=== PATIENT | male | born 1975 | race Caucasian/White ===

== ENCOUNTER 2016-10-10 08:51 | Outpatient (CLI) ==
[2013-01-21 17:01] VITALS: BMI 24.1
[2016-10-10 09:07] LABS: BASOPHILS % (AUTO) 0.3 % (0.0-3.0); EOSINOPHILS % (AUTO) 0.4 % (0.0-7.0); HEMATOCRIT 41.6 % (42.0-52.0); HEMOGLOBIN 14.6 g/dl (14.0-18.0); IMMATURE GRANULOCYTE % (AUTO) 0.4 % (0.0-5.0); LYMPHOCYTES # (AUTO) 2.1 K/uL (0.60-3.4); LYMPHOCYTES % (AUTO) 27.8 (10.0-50.0); MEAN CORPUSCULAR HEMOGLOBIN 30.9 pg (27.0-31.0); MEAN CORPUSCULAR HGB CONC 35.1 (31.8-35.4); MEAN CORPUSCULAR VOLUME 88.1 fl (80.0-94.0); MONOCYTES # (AUTO) 0.5 K/uL (0.4-2.0); MONOCYTES % (AUTO) 6.2 (0-10); NEUTROPHILS % (AUTO) 64.9; PLATELET COUNT 205 10^3/uL (140-440); RED BLOOD COUNT 4.72 10^6/ul (4.70-6.10); WHITE BLOOD COUNT 7.63 K/ul (4.2-10.2)
[2016-10-10 09:41] LABS: ALBUMIN 4.1 g/dL (3.4-5.0); ALBUMIN/GLOBULIN RATIO 1.52; ANION GAP 14.5; BILIRUBIN,TOTAL 0.34 mg/dL (0.00-1.20); BUN/CREATININE RATIO 18.01; CALCIUM 9.3 mg/dL (8.2-10.2); CREATININE 1.11 mg/dL (0.60-1.10); POTASSIUM 5.5 mmol/L (3.5-5.1); TOTAL PROTEIN 6.8 g/dL (6.4-8.2)
== END 2016-10-10 08:52 | disposition home or self-care (01) ==
LOC: LAB 08:51
PROVIDERS: ATTEND Nurse Practitioner Family
DX: E11.9 Type 2 diabetes mellitus without complications (principal); E78.5 Hyperlipidemia, unspecified; I10 Essential (primary) hypertension
CPT/HCPCS: 36415; 80053; 80061; 83036; 84443; 85025

== ENCOUNTER 2018-03-08 05:00 | Outpatient (CLI) ==
[2013-01-21 17:01] VITALS: BMI 24.1
== END 2018-03-08 05:01 | disposition home or self-care (01) ==
LOC: AMBL 05:00
PROVIDERS: ATTEND Internal Medicine Geriatric Medicine
DX: R07.9 Chest pain, unspecified (principal); M79.602 Pain in left arm; M79.601 Pain in right arm; E11.9 Type 2 diabetes mellitus without complications

== ENCOUNTER 2018-11-11 19:23 | Emergency (ER) ==
[2018-11-11 19:29] VITALS: BP 117/110; TEMP 98; BMI 19.8
--- NOTE | 2018-11-11 20:02 | ED.PDOC ---
General ED Provider: Dr. SAM BOND-ER Chief Complaint: Psychiatric Complaint Stated Complaint: brought into the er by police for evaluation of depression Time Seen by Physician: 19:30 Mode of Arrival: Walk-In Information Source: Patient Exam Limitations: No limitations Primary Care Provider: ABHAY ROCK Nursing and Triage Documentation Reviewed and Agree: Yes Does patient meet sepsis criteria?: No System Inflammatory Response Syndrome: Not Applicable Sepsis Protocol: For patient's 13 years and over: Temp is 96.8 and below OR 101 and greater Pulse >90 BPM Resp >20/minute Acutely Altered Mental Status Are patient's symptoms suggestive of a new infection, such as: -Pneumonia -Skin, Soft Tissue -Endocarditis -UTI -Bone, Joint Infection -Implantable Device -Acute Abdominal Infection -Wound Infection -Meningitis -Blood Stream Catheter Infection -Unknown Miscellaneous Complaint Exam - Complex/Multi-System Complaint/Exam Onset/Duration: unknown Symptoms Are: Still present Initial Severity: Mild Current Severity: Mild Location of Pain: no pain Associated Signs and Symptoms: Denies: Decreased responsiveness, Confusion, Agitation, Dizziness, Weakness, Syncope, Headache, Short of air, Cough, Wheezing Recent Echo/LV Function: No JVD Present: No Tachypnea Present: No Stridor Present: No Abdominal Findings: Present: Normal findings Glascow Coma Scale (see protocol): 15 Meningeal Signs Positive: No Focal Weakness: Present: None Focal Sensory Loss: Present: None Gait: Normal Gag Reflex Present: Yes Babinski Sign: Negative Right, Negative Left Skin Findings: Present: Normal findings Joint Swelling Present: No In-Dwelling Device Present: No Quality Indicators For Pneumonia/CAP: Mental status assessed Review of Systems - Review Of Systems Constitutional: Reports: No symptoms Eyes: Reports: No symptoms Ears, Nose, Mouth, Throat: Reports: No symptoms Respiratory: Reports: No symptoms Cardiac: Reports: No symptoms GI: Reports: No symptoms : Reports: No symptoms Musculoskeletal: Reports: No symptoms Skin: Reports: No symptoms Neurological: Reports: No symptoms Endocrine: Reports: No symptoms Hematologic/Lymphatic: Reports: No symptoms All Other Systems: Reviewed and Negative Past Medical History - Past Medical History Previously Healthy: No Endocrine: Reports: DM 2 Cardiovascular: Reports: Unknown Respiratory: Reports: Unknown Hematological: Reports: Unknown Gastrointestinal: Reports: Unknown Genitourinary: Reports: Unknown Neuro/Psych: Reports: Unknown Musculoskeletal: Reports: Unknown Cancer: Reports: Unknown - Surgical History General Surgical History: Reports: Unknown - Family History Family History: Reports: Unknown - Social History Smoking Status: Current every day smoker, Heavy tobacco smoker Hx Substance Use: No Alcohol Screening: Heavy - Immunizations Tetanus Shot up to Date: No Physical Exam - Physical Exam Appearance: Well-appearing, No pain distress, Well-nourished Eyes: TASHIA, EOMI, Conjunctiva clear ENT: Ears normal, Nose normal, Oropharynx normal Neck: Supple Respiratory: Airway patent, Breath sounds clear, Breath sounds equal, Respirations nonlabored Cardiovascular: RRR, Pulses normal, No rub, No murmur GI/: Soft, Nontender, No masses, Bowel sounds normal, No Organomegaly Musculoskeletal: Normal strength, ROM intact, No edema, No calf tenderness Skin: Warm, Dry, Normal color Neurological: Sensation intact, Motor intact, Reflexes intact, Cranial nerves intact, Alert, Oriented Psychiatric: Affect appropriate, Mood appropriate Critical Care Note - Critical Care Note Total Time (mins): 0 Course - Course Hematology/Chemistry: 11/11/18 19:36 11/11/18 19:36 Orders, Labs, Meds: Lab Review 11/11/18 11/11/18 11/11/18 19:34 19:34 19:36 WBC 8.75 RBC 5.33 Hgb 16.7 Hct 47.5 MCV 89.1 MCH 31.3 H MCHC 35.2 RDW Coeff of Lopez 12.8 Plt Count 298 Immature Gran % (Auto) 0.5 Neut % (Auto) 54.4 Lymph % (Auto) 37.6 Lea % (Auto) 5.4 Eos % (Auto) 1.3 Baso % (Auto) 0.8 Immature Gran # (Auto) 0.0 Neut # (Auto) 4.8 Lymph # (Auto) 3.3 Lea # (Auto) 0.5 Eos # (Auto) 0.1 Baso # (Auto) 0.1 Sodium Potassium Chloride Carbon Dioxide Anion Gap BUN Creatinine Estimated GFR (MDRD) BUN/Creatinine Ratio Glucose Calcium Total Bilirubin AST ALT Alkaline Phosphatase Total Protein Albumin Globulin Albumin/Globulin Ratio Urine Color Yellow Urine Clarity Clear Urine pH 5.5 Ur Specific [place] <=1.005 Urine Protein Negative Urine Glucose (UA) 2+ Urine Ketones Negative Urine Blood Negative Urine Nitrite Negative Urine Bilirubin Negative Urine Urobilinogen 0.2 Ur Leukocyte Esterase Negative Salicylate Level mg/dL Urine Opiates Screen Negative Ur Oxycodone Screen Negative Urine Methadone Screen Negative Ur Propoxyphene Screen Negative Acetaminophen Ur Barbiturates Screen Negative U Tricyclic Antidepress Negative Ur Phencyclidine Scrn Negative Ur Amphetamine Screen Negative U Methamphetamines Scrn Negative U Benzodiazepines Scrn Positive Urine Cocaine Screen Negative U Cannabinoids Screen Negative Plasma/Serum Alcohol 11/11/18 19:36 WBC RBC Hgb Hct MCV MCH MCHC RDW Coeff of Lopez Plt Count Immature Gran % (Auto) Neut % (Auto) Lymph % (Auto) Lea % (Auto) Eos % (Auto) Baso % (Auto) Immature Gran # (Auto) Neut # (Auto) Lymph # (Auto) Lea # (Auto) Eos # (Auto) Baso # (Auto) Sodium 138.3 Potassium 4.23 Chloride 97.7 L Carbon Dioxide 20.9 L Anion Gap 23.93 BUN 7.2 L Creatinine 0.52 L Estimated GFR (MDRD) 173.00 BUN/Creatinine Ratio 13.84 Glucose 296.1 H Calcium 9.02 Total Bilirubin 0.45 AST 50.4 ALT 27.8 Alkaline Phosphatase 97.9 Total Protein 7.72 Albumin 4.86 Globulin 2.86 Albumin/Globulin Ratio 1.69 Urine Color Urine Clarity Urine pH Ur Specific [place] Urine Protein Urine Glucose (UA) Urine Ketones Urine Blood Urine Nitrite Urine Bilirubin Urine Urobilinogen Ur Leukocyte Esterase Salicylate Level mg/dL < 1.00 Urine Opiates Screen Ur Oxycodone Screen Urine Methadone Screen Ur Propoxyphene Screen Acetaminophen < 10.0 L Ur Barbiturates Screen U Tricyclic Antidepress Ur Phencyclidine Scrn Ur Amphetamine Screen U Methamphetamines Scrn U Benzodiazepines Scrn Urine Cocaine Screen U Cannabinoids Screen Plasma/Serum Alcohol 284.7 H Orders Category Date Time Status ACETAMINOPHEN Stat LAB 11/11/18 19:36 Completed BLOOD ALCOHOL Stat LAB 11/11/18 19:36 Completed CBC W/ AUTO DIFF Stat LAB 11/11/18 19:36 Completed COMPREHENSIVE METABOLIC PANEL Stat LAB 11/11/18 19:36 Completed SALICYLATE Stat LAB 11/11/18 19:36 Completed URINALYSIS C & S IF INDICATED Stat LAB 11/11/18 19:34 Completed URINE DRUG SCREEN (RAPID FOR ED) [DRUG SCREEN, URINE, LAB 11/11/18 19:34 Completed RAPID] Stat Vital Signs: Temp Pulse Resp BP Pulse Ox 11/11/18 19:23 98.0 F 106 H 18 117/110 H 98 Departure - Departure Time of Disposition: 20:03 Disposition: HOME SELF-CARE Discharge Problem: Intoxication Instructions: Alcohol Intoxication (ED) Condition: Good Pt referred to PMD for follow-up: Yes IPMP verified?: No Additional Instructions: [facility] will contact your at snf Allergies/Adverse Reactions: Allergies No Known Allergies Allergy (Verified 11/11/18 19:29) Home Medications: Ambulatory Orders Escitalopram Oxalate [Lexapro] 10 mg PO DAILY 11/11/18 Hum Insulin NPH/Reg Insulin Hm [Humulin 70-30] 20 unit SUBCUT TID 11/11/18 Insulin Regular, Human [Humulin R] 1 unit SUBCUT ONCE 11/11/18 Lorazepam 2.5 mg PO BID 11/11/18 Quetiapine Fumarate [Seroquel] 100 mg PO BEDTIME 11/11/18 Disposition Discussed With: Patient
== END 2018-11-11 20:08 | disposition home or self-care (01) ==
LOC: ED 19:23
DX: F10.129 Alcohol abuse with intoxication, unspecified (principal); F17.210 Nicotine dependence, cigarettes, uncomplicated; E11.9 Type 2 diabetes mellitus without complications; Z79.899 Other long term (current) drug therapy; Z79.4 Long term (current) use of insulin
CPT/HCPCS: 36415; 80053; 80306; 80307; 81001; 85025; 99283